=== PATIENT | female | born 1940 | race Caucasian/White ===

== ENCOUNTER 2025-02-19 06:10 | Day surgery (SDC) | payer MEDICARE, MEDICAID ==
[2025-02-18 14:09] LABS: MEAN PLATELET VOLUME 8.7 FL (7.4-10.4); RED CELL DISTRIBUTION WIDTH 13.0 % (11.5-14.5)
[2025-02-18 14:20] LABS: CREATININE 0.94 MG/DL (0.40-0.90); TOTAL CARBON DIOXIDE 33.8 MMOL/L (24-32); eGFR 57 ML/MIN
[2025-02-18 14:22] LABS: APTT 28 SECONDS (22-32); INR 1.0 INR
[2025-02-19] VITALS (13 sets, daily range): BP systolic 96–135; BP diastolic 38–59; PULSE 61–75; RESP 13–18; TEMP 98.5; O2SAT 95–100
[~2025-02-19] VITALS: Ht 142.2 cm; Wt 48.4 kg
[~2025-02-19 06:10] MED LIST: ASPI81TA52 PO; PRAV10TA38 PO
--- NOTE | 2025-02-19 06:37 | ELECTROCARDIOGRAPH REPORT ---
[facility] Test Date: 2025-02-19 Test Time: 06:33:10 Pat Name: TING DRAPER Department: [facility] Patient ID: [facility]-[id number] Room: Gender: F Pigment Supplier: JAYCEE : 1940 Requested By: KAREN AU Order Number: [id number] Reading MD: Dr. Nito Henry Measurements Intervals [place] Rate: 75 P: 54 GA: 150 QRS: 109 QRSD: 143 T: 25 QT: 397 QTc: 444 Interpretive Statements Sinus rhythm RBBB and LPFB Electronically Signed On 02-19-2025 7:02:[address] Nito Henry Please click the below link to view image of tracing.
[2025-02-19] MEDS ORDERED: iohexol 350 MG/ML 50ML vial IV ONE (07:33)
[2025-02-19] MEDS ORDERED: fentaNYL/PF 50MCG/1 ML 2ML syringe ONE (07:33)
[2025-02-19] MEDS ORDERED: LIDOcaine 1% (10mg/ml) 2ml vial ONE ×2 (07:33→09:22)
[2025-02-19] MEDS ORDERED: verapamil 2.5 mg/ml inj IV ONE (07:33)
[2025-02-19] MEDS ORDERED: midazolam 1 mg/ML 2ml injection ONE ×2 (07:33→09:01)
[2025-02-19] MEDS ORDERED: heparin 1,000unit/ml 10ml vial 10 ML ONE (07:33)
[2025-02-19] MEDS ORDERED: nitroGLYCERIN 500mcg/5mL D5W 5 ML IV ONE (07:34)
[2025-02-19] MEDS ORDERED: CALC250T2 PO (07:47)
[2025-02-19] MEDS ORDERED: FERR-116 PO (07:47)
[2025-02-19] MEDS ORDERED: TRAM50TA2 PO (07:47)
[2025-02-19] MEDS ORDERED: UBID50TA3 PO (07:47)
[2025-02-19] MEDS ORDERED: ASCO500C18 PO (07:47)
[2025-02-19] MEDS ORDERED: CHOL20002 PO (07:47)
[2025-02-19 09:53] LABS: ISTAT HGB ART 11.6 g/dl (12.0-16.0); ISTAT Hct ART 34 %PCV (35-45); ISTAT O2 SATURATION ARTERIAL 94 % (95-98); ISTAT SOURCE ART
[2025-02-19] MEDS ORDERED: HYDROcodone/acetaminophen 10/325mg tab PO PRN (10:30)
[2025-02-19] MEDS ORDERED: normal saline 1000ml 1,000 ML IV ONE (10:30)
[2025-02-19] MEDS ORDERED: HYDROcodone/acetaminophen 5mg/325mg tablet PO PRN (10:30)
[2025-02-19 11:54] LABS: ISTAT HGB MIX 10.9 g/dl (12.0-16.0); ISTAT Hct MIX 32 %PCV (35-45); ISTAT O2 SATURATION MIX VENOUS 67 % (60-80); ISTAT SOURCE VEN
[2025-02-19] MEDS ORDERED: [UNRECOGNIZED DRUG - OTHER] IMVAC ONE (12:00)
[2025-02-19] MEDS ORDERED: INFLUENZA VACCINE IMVAC ONE (12:00)
--- NOTE | 2025-02-19 13:24 | CARDIOLOGY REPORT ---
DATE OF SERVICE: 02/19/2025 DICTATING PHYSICIAN: ISIS Hartman MD DATE OF PROCEDURE: 02/19/2025 PRIMARY PHYSICIAN: Sarah Aldridge MD. BULK STATION OPERATOR: Nicole Hartman MD. GENDER: Female. AGE: 84 years. HEIGHT: 142 cm. WEIGHT: 48 kg. BODY SURFACE AREA: 1.35 msq INDICATION: An 84-year-old postmenopausal female with history of hypertension, hyperlipidemia, and severe aortic stenosis. An echocardiogram on 02/05/2025 showed ejection fraction of 65%. Aortic valve was 0.65 cmsq with peak/mean gradient of 70/44 mmHg with moderate aortic regurgitation. The patient continues to have episodes of atypical chest pain, shortness of breath, and fatigue. In view of her symptoms, the patient prefers to proceed with a coronary angiography. Risks, benefits, and alternative options discussed. Informed consent obtained. Other comorbidities include osteoarthritis, osteoporosis, DJD, and varicose vein. PROCEDURE TECHNIQUE: The patient underwent left heart catheterization from right radial approach, 6-Monegasque right radial sheath. Post-procedure access site hemostasis secured with right radial band. The patient had right heart catheterization from right antecubital approach, 6-Monegasque sheath. Post-procedure access site hemostasis secured with manual compression. The patient tolerated the procedure well. COMPLICATIONS: None. PROCEDURES DONE: Ultrasound guided right radial artery visualization and access. Right heart catheterization. Left heart catheterization. LVG. Coronary cineangiography. Ascending aortography. Conscious sedation time of 45 minutes. FINDINGS: HEMODYNAMICS: Aortic systolic 127, diastolic 40, mean 76 mmHg, LV systolic 174 mmHg, LVEDP of 21 mmHg. There is a mean gradient of 41 mmHg across the aortic valve with aortic valve area of 0.061 cmsq. Right atrial mean 1 mmHg, RV systolic 23 mmHg, PA 27/7 mmHg. Pulmonary capillary wedge pressure is 8 mmHg. Aortic oxygen saturation 94%. Pulmonary arterial oxygen saturation 67%. Cardiac output by cardiac dilution method is 4.9 L per minuted, cardiac index of 3.6 L/min/msq. LEFT VENTRICULOGRAM: Overall left ventricular systolic function normal with LV ejection fraction 65%-70%. Ascending aortography shows at least moderate aortic regurgitation. CORONARY CINEANGIOGRAPHY: Left main coronary artery engaged with JL 3.5 catheter from right radial approach. Patient did have tortuosity of the brachiocephalic artery which straightened out with cannulation. Left main coronary artery is a large caliber vessel arising from the left aortic sinus with mild luminal irregularities. LAD is a medium to large caliber transapical vessel arising at the bifurcation of the left main and courses through the anterior interventricular groove and ends up by wrapping around the apex. The diagonal branches are less than 2 mm in diameter, there are about 4 of them. Circumflex artery is medium caliber vessel arising at the bifurcation of left main coronary artery, courses through the left AV groove with mild luminal irregularities. OM1 and 2 are 2.5 mm in diameter with minimal luminal irregularities, OM3 is 2.25 mm in diameter with minimal luminal irregularity. Right coronary artery is a medium to large caliber dominant vessel arising from the right aortic sinus courses through the right AV groove and enters the posterior crux by dividing into PDA and posterolateral branches. Mid RCA has about 20% narrowing. IMPRESSION: An 84-year-old female left ventricular ejection fraction of 65% -70%, ] LVEDP of 21 mmHg. There is a mean gradient of 0.61 cmsq aortic valve area. Severe aortic stenosis. Pulmonary capillary wedge pressure of 8 mmHg. PA systolic pressure of 25 mmHg. Left main normal. LAD diagonal with minimal disease. Circumflex marginal with minimal disease. Dominant RCA with 20% narrowing. RECOMMENDATIONS: Recommend continued aggressive coronary risk factor modification namely low-fight, low-cholesterol diet, maintaining ideal body weight, keeping LDL under 70 mg/dL, and regular exercise program. The patient is being referred to TAVR program. ISIS Hartman MD TID: [id number] RECEIPT: [id number] /[facility] cc: Gladis Aldridge MD [facility]
== END 2025-02-19 14:15 | disposition home or self-care (01) ==
LOC: SSTAY O 06:10
PROVIDERS: ATTEND Internal Medicine Cardiovascular Disease
DX: I35.0 Nonrheumatic aortic (valve) stenosis (principal); I25.10 Atherosclerotic heart disease of native coronary artery without angina pectoris; I45.2 Bifascicular block; I10 Essential (primary) hypertension; E78.5 Hyperlipidemia, unspecified; J44.9 Chronic obstructive pulmonary disease, unspecified; M19.90 Unspecified osteoarthritis, unspecified site; M81.0 Age-related osteoporosis without current pathological fracture; Z79.899 Other long term (current) drug therapy; Z90.49 Acquired absence of other specified parts of digestive tract; Z98.890 Other specified postprocedural states
CPT/HCPCS: 36415; 80048; 82803; 85014; 85025; 85610; 85730; 93005; 93460; 93567; 99152; 99153; A6258; A6402; C1725; C1751; C1894; J1200; J1644; J2003; J2250; J3010; J3490; J7030; Q9967; Z7610; 76937

== ENCOUNTER 2025-04-08 10:06 | Outpatient (CLI) | payer MEDICARE, MEDICAID ==
[~2025-04-08 10:06] MED LIST changes: +ASCO500C18 PO; -ASPI81TA52 PO; +CALC250T2 PO; +CHOL20002 PO; +FERR-116 PO; +IODIXANOL 320 MG/ML INFUS..BTL 100ML IV ONE; +TRAM50TA2 PO; +UBID50TA3 PO
[2025-04-08 11:06] LABS: MEAN PLATELET VOLUME 8.6 FL (7.4-10.4); RED CELL DISTRIBUTION WIDTH 12.9 % (11.5-14.5)
[2025-04-08 11:18] LABS: APTT 30 SECONDS (22-32); INR 1.1 INR
[2025-04-08 11:33] LABS: CREATININE 1.08 MG/DL (0.40-0.90); PRO BRAIN NATRIURETIC PEPTIDE 1514 PG/ML (0-450); TOTAL CARBON DIOXIDE 31.5 MMOL/L (24-32); eGFR 48 ML/MIN
--- NOTE | 2025-04-08 11:38 | RADIOLOGY REPORT ---
History: TAVR SOB COMPARISON: None Procedure Comments: 2 views of the chest. FINDINGS: The lung parenchyma is clear. No pleural effusion. Cardiac silhouette is enlarged. Exaggerated kyphotic curvature of the thoracic spine. IMPRESSION: 1. No acute cardiopulmonary disease.
--- NOTE | 2025-04-08 13:53 | VASCULAR REPORT ---
CLINICAL HISTORY: TAVR TECHNIQUE: Porter-scale, Color and Duplex Doppler imaging of the bilateral carotid systems was performed. COMPARISON: None FINDINGS: Right Carotid system: There is plaque present in the right carotid system. Left Carotid system: There is plaque present in the left carotid system. The following flow velocities were obtained (cm/sec). Right Carotid System: ICA PSV: 94 cm/sec ICA PDV: 9 cm/sec ICA/CCA Ratio: 1 Left Carotid System: ICA PSV: 119 cm/sec ICA PDV: 19 cm/sec ICA/CCA Ratio: 1.3 The right and left common carotid and external carotid arteries are patent. There is antegrade flow in both vertebral arteries and external carotid arteries. IMPRESSION: LESS THAN 50% RIGHT ICA NARROWING. LESS THAN 50% LEFT ICA NARROWING. Estimation of carotid stenosis is based on velocity parameters that correlate the residual internal carotid diameter with that of the more distal vessel in accordance with the [place] Symptomatic Carotid Endarterectomy Trial (NASCET).
--- NOTE | 2025-04-09 15:14 | RADIOLOGY REPORT ---
CT CTA TAVR INDICATION: Stenosis TECHNIQUE: Gated CT angiography of the heart was performed along with CT angiography of the lower neck, chest, abdomen, and pelvis. MIP, MPR, and 3-D images were obtained. Measurements were performed on the [employer] workstation. All CT scans at this facility use dose modulation, iterative reconstruction, and/or weight based dosing when appropriate to reduce radiation dose to as low as reasonably achievable. COMPARISON: None available at the time of dictation. FINDINGS: ANNULAR PLANE DISTANCE: 22.6 x 17.2 mm AREA: 2.95 cm2 AVERAGE DIAMETER: 19.9 mm PERIMETER: 62.7 mm LEFT CORONARY ARTERY HEIGHT ABOVE ANNULAR PLANE: 11.3 mm RIGHT CORONARY ARTERY HEIGHT ABOVE ANNULAR PLANE: 10.5 mm LEFT CORONARY SINUS DIAMETER: 25.8 mm RIGHT CORONARY SINUS DIAMETER: 27 mm NONCORONARY CORONARY SINUS DIAMETER: 25.6 mm SINOTUBULAR JUNCTION DIAMETER: 22.6 mm RIGHT COMMON ILIAC ARTERY MINIMAL DIMENSIONS: 7.79 mm RIGHT EXTERNAL ILIAC ARTERY MINIMAL DIMENSIONS: 5.65 mm RIGHT COMMON FEMORAL ARTERY MINIMAL DIMENSIONS: 5.83 mm LEFT COMMON ILIAC ARTERY MINIMAL DIMENSIONS: 8.2 mm LEFT EXTERNAL ILIAC ARTERY MINIMAL DIMENSIONS: 6.8 mm LEFT COMMON FEMORAL ARTERY MINIMAL DIMENSIONS: 6.6 mm [LOWER NECK]: Unremarkable [LYMPH NODES/MEDIASTINUM]: No abnormal lymph nodes by CT size criteria. Large sliding hiatal hernia [CARDIOVASCULAR]: Normal cardiac size. No pericardial effusion. No aneurysmal dilatation of the great vessels. No significant coronary artery calcifications. [LUNG PARENCHYMA/PLEURAL SPACE]: No consolidation, suspicious focal airspace opacity, or suspicious nodules. No pleural effusion or pneumothorax. [CHEST WALL]: Unremarkable. [LIVER]: Normal hepatic size without suspicious focal lesion. [SPLEEN]: Unremarkable. [PANCREAS]: Unremarkable. [GALLBLADDER AND BILIARY TREE]: Surgically absent. Mild intrahepatic biliary dilatation. [ADRENAL GLANDS]: Unremarkable [KIDNEYS]: No hydronephrosis. No nephroureterolithiasis. No suspicious focal lesion. [BLADDER]: Unremarkable for the degree distention. [PELVIC ORGANS]: Limited evaluation secondary to streak artifact [BOWEL/MESENTERY]: Large sliding hiatal hernia stomach into the posterior mediastinum [id number] stool burden mild sigmoid diverticulosis. No CT evidence of bowel obstruction. [ASCITES]: Absent [LYMPHADENOPATHY]: No pathologically enlarged lymph nodes by CT size criteria [VASCULATURE]: Vascular calcifications. [ABDOMINAL WALL]: Unremarkable. [MUSCULOSKELETAL]: No acute fracture or aggressive focal osseous lesion. Multifocal degenerative change of the visualized spine. Right hip arthroplasty. Thoracic kyphosis. Chronic areas of superior endplate height loss of the L2, T12, T11, T9 T6, T4, T3, T2 IMPRESSION: 1. Calculations for TAVR evaluation as above. 2. Large sliding hiatal hernia.
== END 2025-04-08 23:59 | disposition home or self-care (01) ==
LOC: RAD 10:06
PROVIDERS: ATTEND Internal Medicine Cardiovascular Disease
DX: K57.30 Diverticulosis of large intestine without perforation or abscess without bleeding (principal); I35.0 Nonrheumatic aortic (valve) stenosis; R06.02 Shortness of breath; K44.9 Diaphragmatic hernia without obstruction or gangrene; M40.294 Other kyphosis, thoracic region; I65.23 Occlusion and stenosis of bilateral carotid arteries
CPT/HCPCS: 36415; 71046; 71275; 74174; 75572; 80053; 83880; 85025; 85610; 85730; 93880; Q9967